=== PATIENT | female | born 1945 | race Caucasian/White ===

== ENCOUNTER 2018-05-30 09:48 | Day surgery (SDC) | payer OTHER, BC ==
[~2018-05-30] VITALS: Ht 165.1 cm; Wt 78.0 kg
[~2018-05-30 09:48] MED LIST: ADVIL200 MG PO; ASPIR 8181 M1 PO; LIPITOR40 MG PO; LUTEIN6 MG PO; METOPROLOL TART25 MG PO; NITROGLYCERIN2.5 MG PO; OMEPRAZOLE20 MG PO
[2018-05-30 10:47] LABS: BASOPHIL (%) 0.8 % (0-1); BASOPHIL COUNT 0.1 K/uL (0-0.1); EOSINOPHIL COUNT 0.1 K/uL (0-0.3); HEMATOCRIT 41.8 % (36.0-46.0); HEMOGLOBIN 13.4 G/DL (11.9-15.5); IMMATURE GRANULOCYTE (%) 0.3 % (0.0-0.7); LYMPHOCYTE (%) 24.6 % (15-42); LYMPHOCYTE COUNT 1.6 K/uL (1.0-2.8); MCH 31.8 PG (29.0-34.0); MCHC 32.1 G/DL (30.0-36.0); MCV 99.3 FL (83-99); MONOCYTE (%) 10.6 % (3-12); MONOCYTE COUNT 0.7 K/uL (0-0.8); NEUTROPHIL (%) 61.7 % (45-76); NEUTROPHIL COUNT 3.9 K/uL (1.8-6.4); PLATELET COUNT 390 K/uL (156-360); RBC DIS.WIDTH-CV 13.9 % (11.8-14.6); RBC DIS.WIDTH-SD 51.1 % (39-53); RED BLOOD COUNT 4.21 M/uL (3.80-5.20); WHITE BLOOD COUNT 6.4 K/uL (4.1-10.2)
[2018-05-30 11:10] LABS: CHLORIDE 104 mEq/L (99-109); SODIUM 140 mEq/L (136-147)
[2018-05-30 11:11] LABS: GLUCOSE 97 mg/dL (70-99)
[2018-05-30 11:15] LABS: CREATININE 0.8 mg/dL (0.6-1.3); GFR ESTIMATE (CALCULATED) > 59 mL/min/
[2018-05-30 11:16] LABS: UREA NITROGEN (BUN) 16 mg/dL (9-23)
== END 2018-05-30 15:50 | disposition home or self-care (01) ==
LOC: CATH 09:48
PROVIDERS: Internal Medicine Cardiovascular Disease
DX: I25.10 Atherosclerotic heart disease of native coronary artery without angina pectoris (principal); Z82.49 Family history of ischemic heart disease and other diseases of the circulatory system; K21.9 Gastro-esophageal reflux disease without esophagitis; Z85.828 Personal history of other malignant neoplasm of skin; G89.29 Other chronic pain; Z79.82 Long term (current) use of aspirin
CPT/HCPCS: 80048; 85025; 93005; C1769; C1887; J1644; J2250; J3010; J7040